=== PATIENT | female | born 1975 | race Caucasian/White ===

== ENCOUNTER 2016-11-04 18:00 | Inpatient (IN) | payer BC ==
[~2016-11-04] VITALS: Ht 160 cm; Wt 68.9 kg
[~2016-11-04 18:00] MED LIST: ALLEGRA; SUDAFED; YAZ
[2016-11-04] MEDS ORDERED: AMPICILLIN SODIUM 2 GM VIAL ONE (21:07)
[2016-11-04] MEDS ORDERED: OXYTOCIN/NORMAL SALINE 1,000 ML IV ONE (21:09)
[2016-11-04] MEDS ORDERED: OXYTOCIN/NORMAL SALINE 1,000 ML IV SCH (21:15)
[2016-11-04] MEDS ORDERED: AMPICILLIN SODIUM 2 GM in NS 100 ML IV ONE (21:15)
[2016-11-04] MEDS: LR 1,000 ML IV SCH ×2 (21:15→22:32)
[2016-11-04 21:30] LABS: HEMOGLOBIN 13.2 g/dL (12.0-16.0)
[2016-11-04 21:36] LABS: BASOPHILS % (AUTO) 0.3 % (0.0-2.0); EOSINOPHILS # (AUTO) 0.2 K/uL (0.0-0.4); EOSINOPHILS % (AUTO) 1.1 % (0.0-4.0); HEMATOCRIT 39.2 % (36-48); LYMPHOCYTES # (AUTO) 2.6 K/uL (1.0-5.5); MEAN CORPUSCULAR HEMOGLOBIN 28 pg (27-31); MEAN CORPUSCULAR HGB CONC 34 % (32-36); MEAN CORPUSCULAR VOLUME 82 fL (79.0-98.0); MONOCYTES % (AUTO) 7.2 % (1.7-9.3); NEUTROPHILS # (AUTO) 10.1 K/uL (1.8-7.7); NEUTROPHILS % (AUTO) 72.4 % (40.0-70.0); PLATELET COUNT (AUTO) 248 K/uL (130-430); RED CELL DISTRIBUTION WIDTH 12.7 % (9.0-15.0); WHITE BLOOD COUNT (AUTO) 13.9 K/uL (4.8-10.8)
[2016-11-04] MEDS ORDERED: FENT2mCg/mL-ROPIVA0.2%/NS EPID 150 ML EP ONE (22:33)
[2016-11-04] MEDS ORDERED: fentaNYL CITRATE/PF 100 MCG/2 ML AMP ONE (22:33)
[2016-11-04] MEDS ORDERED: LR 500 ML IV ONE (23:06)
[2016-11-04] MEDS ORDERED: FENT2mCg/mL-ROPIVA0.2%/NS EPID 150 ML EP SCH (23:15)
[2016-11-04] MEDS ORDERED: fentaNYL CITRATE/PF 100 MCG/2 ML AMP EP ONE (23:15)
[2016-11-04] MEDS ORDERED: ePHEDrine sulfate 50 MG/ML VIAL IVP PRN (23:15)
[2016-11-05] MEDS ORDERED: AMPICILLIN SODIUM 1 GM VIAL ONE (00:58)
[2016-11-05] MEDS ORDERED: AMPICILLIN SODIUM 1 GM in NS 50 ML IV SCH (01:15)
[2016-11-05] MEDS ORDERED: OXYTOCIN/NORMAL SALINE 1,000 ML IV ONE (01:17)
[2016-11-05] MEDS ORDERED: OXYTOCIN/NORMAL SALINE 1,000 ML IV SCH (01:17)
[2016-11-05] MEDS ORDERED: DOCUSATE SODIUM 100 MG CAPSULE PO PRN (01:30)
[2016-11-05] MEDS ORDERED: ANUSOL 1 EA SUPP.RECT (PREPARATION H) RC PRN (01:30)
[2016-11-05] MEDS ORDERED: HYDROcodone/ACETAMIN 5-325 MG TAB (NORCO/ VICODIN) PO PRN (01:30)
[2016-11-05] MEDS ORDERED: GLYCERIN/WITCH HAZEL (TUCKS PADS) TP PRN (01:30)
[2016-11-05] MEDS ORDERED: DERMOPLAST SPRAY TP PRN (01:30)
[2016-11-05] MEDS ORDERED: LANOLIN 7 GM OINT. TP PRN (01:30)
[2016-11-05] MEDS ORDERED: MEASLES,MUMPS&RUBELLA VACC/PF 12500 UNIT/0.5 ML VIAL SUBQ PRN (01:30)
[2016-11-05] MEDS ORDERED: OXYCODONE/ACETAMINOPHEN 5-325 TABLET PO PRN ×2 (01:30)
[2016-11-05] MEDS ORDERED: METHYLERGONOVINE MALEATE 0.2 MG TABLET PO PRN (01:30)
[2016-11-05] MEDS ORDERED: SENNOSIDES/DOCUSATE SODIUM 1 TAB TABLET(SENOKOT-S) PO PRN (01:30)
[2016-11-05] MEDS ORDERED: RHO(D) IMMUNE GLOBULIN/MALTOSE 1500 UNITS/1.3 ML (WINHRO) IM PRN (01:30)
[2016-11-05] MEDS ORDERED: HYDROCORTISONE 0.5%, 28.35 GM TOPICAL CREAM TP PRN (01:30)
[2016-11-05 04:38] VITALS: BP_SYST 125
[2016-11-05] MEDS: IBUPROFEN 600 MG TABLET PO SCH ×4 (06:04→23:43)
[2016-11-05] MEDS ORDERED: TEMAZEPAM 15 MG CAPSULE PO PRN (21:00)
[2016-11-06] MEDS: IBUPROFEN 600 MG TABLET PO SCH ×2 (05:37→11:50)
[2016-11-06 07:35] LABS: BASOPHILS # (AUTO) 0.1 K/uL (0.0-0.2); BASOPHILS % (AUTO) 0.5 % (0.0-2.0); EOSINOPHILS # (AUTO) 0.2 K/uL (0.0-0.4); EOSINOPHILS % (AUTO) 1.5 % (0.0-4.0); HEMATOCRIT 34.8 % (36-48); HEMOGLOBIN 11.7 g/dL (12.0-16.0); LYMPHOCYTES # (AUTO) 2.9 K/uL (1.0-5.5); LYMPHOCYTES % (AUTO) 24.5 % (20.5-51.5); MEAN CORPUSCULAR HEMOGLOBIN 28 pg (27-31); MEAN CORPUSCULAR HGB CONC 34 % (32-36); MEAN CORPUSCULAR VOLUME 84 fL (79.0-98.0); MONOCYTES # (AUTO) 0.9 K/uL (0.0-1.0); MONOCYTES % (AUTO) 7.4 % (1.7-9.3); NEUTROPHILS # (AUTO) 7.7 K/uL (1.8-7.7); NEUTROPHILS % (AUTO) 66.1 % (40.0-70.0); PLATELET COUNT (AUTO) 204 K/uL (130-430); RED BLOOD CELL COUNT(AUTO) 4.17 MIL/uL (4.2-6.2); RED CELL DISTRIBUTION WIDTH 12.7 % (9.0-15.0); WHITE BLOOD COUNT (AUTO) 11.8 K/uL (4.8-10.8)
== END 2016-11-06 17:45 | disposition home or self-care (01) | DRG 775 ==
LOC: SPU 18:00 → OBSVTOIN 20:45
PROVIDERS: ADMIT Specialist; ATTEND Specialist
PROC: 10E0XZZ Delivery of Products of Conception, External Approach (ICD-10-PCS; principal; 2016-11-04)
PROC: 0W8NXZZ Division of Female Perineum, External Approach (ICD-10-PCS; 2016-11-04)
PROC: 3E0S3CZ (ICD-10-PCS; 2016-11-04)
PROC: 00HU33Z Insertion of Infusion Device into Spinal Canal, Percutaneous Approach (ICD-10-PCS; 2016-11-04)
DX: O09.523 Supervision of elderly multigravida, third trimester (principal); O99.824 Streptococcus B carrier state complicating childbirth; Z37.0 Single live birth; Z3A.37 37 weeks gestation of pregnancy
CPT/HCPCS: 36415; 85025; 86592; 86870; 86886; 86900; 86901; 94760; G0378; J0290; J2590; J3010; J7120